=== PATIENT | female | born 1955 | race Caucasian/White ===

== ENCOUNTER 2016-09-30 10:32 | Emergency (ER) | payer OTHER ==
[2016-09-30 10:43] VITALS: BP 160/82; PULSE 63; RESP 18; TEMP 98; O2SAT 96
--- NOTE | 2016-09-30 11:34 | UCPHY ---
H & P Time Seen by Provider: 09/30/16 11:14 Patient Type: Established HPI/ROS: CHIEF COMPLAINT: Left leg pain and swelling HISTORY OF PRESENT ILLNESS: Patient is a 61-year-old female who presents to the emergency department with intermittent left leg pain and swelling. She states this been going on for approximately 1 month. It is intermittent. She does not associated with particular time of day or position. She states she initially had pain in her foot that extended to calf prior to she now has mild discomfort in the thigh. She has no incontinence of urine or stool. No fevers or chills. She does feels of the left extremity is mildly weaker than the right. No numbness. No chest pain or shortness of breath. No recent travel. Patient is not on hormone replacement therapy. She does not smoke. No family history of DVT. REVIEW OF SYSTEMS: My complete review of systems is negative except as mentioned in the HPI. Past Medical/Surgical History: Includes back surgery and Smoking Status: Never smoked Physical Exam: Vitals noted GENERAL: Well-appearing, in no acute distress, alert. Obese. HEENT: Eyes normal to inspection, normal pharynx, no signs of dehydration. NECK: No thyromegaly, no lymphadenopathy, supple. RESPIRATORY: Clear to auscultation bilaterally, no rales, rhonchi or wheezing. CVS: Regular rate and rhythm, no rubs, murmurs, or gallops. ABDOMEN: Soft, nontender, nondistended, no organomegaly. BACK: Normal to inspection, no CVA tenderness. SKIN: Normal color, no rash, warm, dry. No pallor. EXTREMITIES: No pedal edema, no calf tenderness, no Homans sign or cords. Patient has mild swelling over her left lateral malleolus. She states this is baseline. NEURO/PSYCH: Alert and oriented, normal mood and affect, normal motor sensory exam. Constitutional: Initial Vital Signs Temperature (C) 36.6 C 09/30/16 10:40 Heart Rate 63 09/30/16 10:40 Respiratory Rate 18 09/30/16 10:40 Blood Pressure 160/82 H 09/30/16 10:40 O2 Sat (%) 96 09/30/16 10:40 O2 Delivery Mode Room Air Allergies/Adverse Reactions: acetaminophen [From Percocet] Allergy (Intermediate, Verified 01/13/15 10:16) Itching oxycodone HCl [From Percocet] Allergy (Intermediate, Verified 06/24/14 10:16) Itching Home Medications: Medication Instructions Recorded traMADol [Ultram] 50 mg PO Q4-6PRN PRN #50 tab 06/24/14 Medical Decision Making - Diagnostics Imaging Results: Imaging Impressions Extremity Venous Study 09/30/16 11:27 Impression: No evidence of deep vein thrombosis in the left lower extremity. Results called and discussed with SONIA LEAVITT M.D. on 09/30/2016 at 12:24 . ED Course/Re-evaluation: Imaging care discussed possible etiologies with the patient. She consented to an ultrasound of her left lower extremity. I did not feel the patient needs laboratory studies at this time. Ultrasound left lower extremity: Please refer the dictated report by the radiologist. No DVT noted. Discussed the results with the patient. I answered all her questions. She will follow up with her primary care physician. I discussed etiologies in the need for close follow-up. She was given warnings prior to leaving. She will return with worsening symptoms. Differential Diagnosis: My differential includes but is not limited to DVT, vascular occlusion, disc herniation, musculoskeletal strain, gout, mass Departure - Departure Disposition: Home, Routine, Self-Care Clinical Impression: Leg pain, left Condition: Good Instructions: Leg Pain (ED) Additional Instructions: Return with increasing pain, weakness, numbness, fever or any other concerns. Referrals: Darrel Gardiner, DO [Primary Care Provider] - 2-3 days, if not improved - PQRS PQRS Measurement: My PQRS negative my PQRS negative my PQRS negative my PQRS negative 134: Depression screening and followup, PRIME MD-PHQ2 (12 years and older) Over the last 2 weeks, how often have you been bothered by any of the following problems? 1. Feeling down, depressed, or hopeless? 2. Little interest or pleasure in doing things? Patient answered no to both 1 and 2 130: Documentation of medications. Reviewed all patient medications, doses, route and frequency. 226: Do you smoke? No.
== END 2016-09-30 12:40 | disposition home or self-care (01) ==
LOC: CED 10:32
DX: M79.605 Pain in left leg (principal); M79.89 Other specified soft tissue disorders
CPT/HCPCS: 93971-PO; 99214-PO; G0463-PO